=== PATIENT | female | born 1985 | race Caucasian/White ===

== ENCOUNTER 2022-11-17 05:32 | Inpatient (IN) ==
--- NOTE | 2022-11-10 13:53 | Communication Note ---
Received phone call from [facility]- patient scheduled for 11/17/22. Hx of thrombocytopenia. Platelets on 11/02/22 were 100. OB office inquiring if further instructions needed for DOS. Did discuss with Dr. Albrecht- recommend repeat CBC DOS to recheck platelets. As long as thrombocytopenia staying stable around 100- no issues proceeding with spinal anesthetic. Per review of records- patient had epidural placed in 05/04/20 for labor- epidural later dosed for . Epidural catheter was actually replaced prior to on 05/05/20 when platelet count was 87k. Plan at this time is to awaiting CBC results DOS. Anesthesia will leave to OB discretion if patient needs further preop treatment prior to procedure.
--- NOTE | 2022-11-16 08:49 | Anesthesiology Consultation ---
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 Repeat labs from 11/15/22 showed platelets of 78. OB is aware. No plan for pre treatment or platelet transfusion at this time. Plan is to repeat platelets morning of (tomorrow 11/17/22) and will make final decision with how to proceed at that time. Did inform OB that anesthesia ideally likes platelets 80 or greater for neuraxial anesthesia. Dr Stover is okay to proceed with thrombocytopenia and would be amendable to under GA if needed. Pt will be seeing OB this morning and plan will be discussed. Dr. Albrecht was also inf ormed - will make final anesthesia decisions DOS after platelet count confirmed. -Infectious Disease screening: Per PAT nursing assessment on11/15/22. No known infectious disease contacts in past 10 days or current infectious disease symptoms. No recent travel outside the country. History Surgery Operation Date: 11/17/22 07:30 Proposed Procedures p Section (Delivery of Baby Through Abdominal Incision) - Masha Stover MD s with Bilateral Tubal Ligation - Masha Stover MD Height/Weight Height: 5 ft 6 in Weight: 81.647 kg Allergies Allergy/AdvReac Type Severity Reaction Status Date / Time No Known Allergies Allergy Verified 11/17/22 05:54 Medications Home Medications Medication Instructions Recorded Confirmed Last Taken prenat.vits,owen,nmf-bhtk-fvztz 1 tab PO DAILY 04/11/19 11/17/22 11/16/22 16:00 levothyroxine 137 mcg tablet 137 mcg PO QAM 04/14/22 11/17/22 11/17/22 05:00 aspirin 81 mg tablet,delayed 81 mg PO DAILY 10/12/22 11/17/22 11/15/22 21:00 release (Adult Low Dose Aspirin) breast pump #1 ea 10/26/22 11/16/22 Unknown Active Medications Generic Name Dose Route Start Last Admin Trade Name Freq PRN Reason Stop Dose Admin Cefazolin Sodium 2,000 mg/ 15 mls @ 3.75 mls/min 11/17/22 06:00 11/17/22 07:22 Syringe IV 11/17/22 14:00 3.75 mls/min PREOP KIERSTEN Administration Protocol Past Medical History Medical History H/O Terrance thyroiditis History of pre-eclampsia Hypothyroidism Thrombocytopenia affecting Past Family History Family History Grandfather (Paternal) Diabetes Hypertension Grandmother (Paternal) Diabetes Hypertension Mother Thyroid disease Gestational diabetes Grandfather (Maternal) Hypertension Grandmother (Maternal) Hypertension Father Prostate cancer Past Surgical History Surgical History H/O section Social History Smoking Status: Never smoker Do You Dip or Chew Tobacco: No Hx Alcohol Use: No Hx Substance Use: No substance use type: does not use Physical Exam Vital Signs Last Vital Signs Temp 36.8 C 11/17/22 06:00 Pulse 85 11/17/22 07:13 Resp 18 11/17/22 06:00 BP 156/97 H 11/17/22 07:13 Testing Laboratory Results 11/17/22 05:45 11/17/22 06:54 Blood Type B Positive 11/17/22 05:45 Antibody Screen NEGATIVE 11/17/22 05:45 11/15/22= WBC: 9.60 H/H: 11.8/37.0 PLATELETS: 78 SODIUM: 138 POTASSIUM: 4.3 CHLORIDE: 104 CO2: 22 BUN: 14 CREATININE: 1.0 GLUCOSE: 75 TSH: 1.86 FREE T4: 1.3 UA: Trace protein, 26-50 urine bacteria
--- NOTE | 2022-11-16 10:07 | History & Physical Report ---
Date of Service November 16, 2022 Assessment & Plan (1) Previous delivery affecting , antepartum: (2) Thrombocytopenia affecting : Plan -reviewed platelets of 78 is still acceptable for CS, however possible that may not be a candidate for spinal anesthesia. Reviewed at this point, would not indicate platelet transfusion or pre-treatment given timing. Will need to see what platelets are in the AM to determine neuraxial plan. Reviewed if platelets are below 50 may need to transfuse or consider location of delivery and pt verbalized understanding -Discussed indications, risks, benefits, alternatives with risks including infection, bleeding, injury to adjacent structures (bowel, bladder, ureters, blood vessels, nerves, baby), possible need for blood transfusion and/or life saving hysterectomy, VTE. Reviewed risks for tubal including risk of regret, ectopic and alternatives and desires to proceed with tubal. Consent reviewed in detail w/ pt and signed after all questions answered to her satisfaction. History of Present Illness Chief Complaint: preop Primary Care Provider: Kiya Keating MD 36 yo at 38 6/7 wga presents for preop for planned repeat CS + BTL tomorrow at 39 wks. +FM; denies ctx, LOF, VB. NST reactive. Of note platelets have been slowly downtrending as of last few weeks. Had been following nephro and during labs had noted platelets of 100, confirmed 11/02. Yesterday had platelets 78. 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 SAB G2 2020 pLTCS G3 current regular cycles, denies h STIs Allergies Allergy/AdvReac Type Severity Reaction Status Date / Time No Known Allergies Allergy Verified 11/16/22 08:41 Home Medications Medication Instructions Recorded Confirmed Type prenat.vits,owen,lug-iwmy-qgsqq 1 tab PO DAILY 04/11/19 11/16/22 History levothyroxine 137 mcg tablet 137 mcg PO QAM 04/14/22 11/16/22 History aspirin 81 mg tablet,delayed 81 mg PO DAILY 10/12/22 11/16/22 History release (Adult Low Dose Aspirin) breast pump #1 ea 10/26/22 11/16/22 Rx Patient History Medical History H/O Terrance thyroiditis History of pre-eclampsia Hypothyroidism Thrombocytopenia affecting Surgical History H/O section Family History Grandfather (Paternal) Diabetes Hypertension Grandmother (Paternal) Diabetes Hypertension Mother Thyroid disease Gestational diabetes Grandfather (Maternal) Hypertension Grandmother (Maternal) Hypertension Father Prostate cancer Social History Smoking Status: Never smoker Second Hand Exposure: No; Do You Dip or Chew Tobacco: No; Hx Alcohol Use: No Hx Substance Use: No Preferred Language: Serbian Communication Ability: Effective Parts Finisher Required: No Beliefs That Will Affect Care: None marital status: marital status details: Pranay Martinez (37) [phone] Current Living Situation: Spouse Current Living Situation Comment: lives with spouse, child current occupational status: employed 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 [employer] Feels Safe at Home: Yes Assistive Devices: Glasses Physical Exam Respiratory: normal respiratory effort, lungs clear to auscultation Cardiovascular: RRR, no murmur, no edema Genitourinary: OB Exam Abdomen: + heart tones (NST reactive) Results & Data Laboratory Results OB Labs: Blood Type B Positive 04/28/22 Antibody Screen NEGATIVE 04/28/22 Hemoglobin 11.5 g/dl (12.0-16.0) L 11/02/22 Hematocrit 34.8 % (37.0-47.0) L 11/02/22 Mean Corpuscular Volume 86.4 fL (80.0-100.0) 11/02/22 Platelet Count 100 K/uL (130-400) L 11/02/22 Rubella IgG Antibody Immune (Immune) 04/28/22 Rapid Plasma Reagin Nonreactive (Nonreactive) 04/28/22 Hepatitis B Surface Antigen Neg (Neg) 09/25/19 Hepatitis B Surface Antigen. NON-REACTIVE (NON-REACTIVE) 04/28/22 Hepatitis C Antibody (EIA) NON-REACTIVE (NON-REACTIVE) 04/28/22 HIV (1&2) Ab and P24 Ag, 4th Gener Neg (Neg) 09/25/19 HIV (1&2) Ag and Ab Confirmation NON-REACTIVE (NON-REACTIVE) 04/28/22 Glucose 1 Hour 50 gm Load 141 mg/dl (70-130) H 06/09/22 OB Optional Labs: Chlamydia trachomatis RNA Not Detected (NotDetected) 04/28/22 Neisseria gonorrhoeae RNA Not Detected (NotDetected) 04/28/22 Thyroid Stimulating Hormone (TSH) 0.515 uIu/ml (0.300-4.500) 03/15/20 Labs Reviewed: (-) CF/SMA in prior , HK cfdna-low risk--mln GBS neg Diagnostic Findings R lat plac Coding Level of Care Code None Diagnoses Previous delivery affecting , antepartum O34.219 Thrombocytopenia affecting O99.119; D69.6
[2022-11-17] MEDS ORDERED: SODIUM CHLORIDE 0.9% 250 ML IV PRN (05:40)
[2022-11-17] MEDS ORDERED: CITRIC ACID/SODIUM CITRATE 15 ML UDC PO SCH (06:00)
[2022-11-17] MEDS ORDERED: ceFAZolin 2,000 MG in SYRINGE 0 ML IV SCH (06:00)
[2022-11-17] MEDS ORDERED: LACTATED RINGER'S 1,000 ML IV SCH (06:00)
[2022-11-17 06:35] LABS: Hematocrit (blood only) 33.6 % (37.0-47.0); Hemoglobin 11.3 g/dl (12.0-16.0); Mean Corpuscular Hemoglobin 28.3 pg (25.0-34.0); Mean Corpuscular Hgb Conc 33.6 g/dL (32.0-36.0); Mean Corpuscular Volume 84.2 fL (80.0-100.0); Platelet Count 85 K/uL (130-400); RDW Coefficient of Variation 11.9 % (11.5-14.5); RDW Standard Deviation 35.9 fL (36.4-46.3); Red Blood Count 3.99 M/uL (4.20-5.40); White Blood Count 12.65 K/ul (4.8-10.8)
[2022-11-17] MEDS ORDERED: NIFEdipine 10 MG CAP PO STA (06:38)
[2022-11-17 06:50] LABS: Basophils # (auto) 0.07 K/uL (0.00-0.20); Basophils % (auto) 0.6 %; Eosinophils # (auto) 0.07 K/uL (0.00-0.50); Eosinophils % (auto) 0.6 %; Immature Granulocytes # (auto) 0.08 K/uL (0.01-0.20); Immature Granulocytes % (auto) 0.6 %; Lymphocytes # (auto) 3.24 K/uL (1.20-3.40); Lymphocytes % (auto) 25.6 %; Monocytes # (auto) 0.99 K/uL (0.11-0.59); Monocytes % (auto) 7.8 %; Neutrophils % (auto) 64.8 %; Polychromasia 1+
[2022-11-17] MEDS ORDERED: MoRPHine SULFATE PF 1 MG/ML 10 ML AMP/VIAL ONE (07:05)
[2022-11-17] MEDS ORDERED: OXYTOCIN 10 UNITS/ML VIAL ONE (07:05)
[2022-11-17] MEDS ORDERED: fentaNYL citrate PF 100 MCG/2 ML VIAL ONE (07:05)
[2022-11-17] MEDS ORDERED: PHENYLEPHRINE 100MCG/ML 5ML SYR ONE (07:05)
[2022-11-17 07:28] LABS: Albumin Globulin Ratio 1.1 (0.9-2); Albumin Level 3.2 gm/dl (3.4-5.0); BUN Creatinine Ratio 19.4 (10-20); Bilirubin,Total 0.3 mg/dl (0.2-1.0); Calcium 8.4 mg/dl (8.6-10.3); Creatinine Clr Calc Pharmacy 92.9 ml/min; Est GFR (African American) 92.3 ml/min; Est GFR (Non-African American) 79.6 ml/min; Globulin 2.9 gm/dl (2.5-4.0); Potassium 4.3 mmol/L (3.5-5.1); Total Protein 6.1 gm/dl (6.0-8.3)
--- NOTE | 2022-11-17 07:31 | History & Physical Bridge Note ---
Date of Service November 17, 2022 History & Physical Bridge Note I have examined the patient, reviewed the History & Physical and in the interval since the performance of the History & Physical I have noted the following changes of clinical significance: no changes noted. Platelets 85, ok for spinal. Elevated bps and received nifedipine this AM, CMP pending. Will determine further management w/ BP monitoring
[2022-11-17] MEDS ORDERED: NO NARCOTICS OR SEDATIVES SCH (07:45)
[2022-11-17] MEDS ORDERED: PROMETHAZINE HCL 6.25 MG in SODIUM CHLORIDE 0.9% 50 ML IV PRN (07:45)
[2022-11-17] MEDS ORDERED: KETOROLAC 30 MG/ML VIAL IV PRN (07:45)
[2022-11-17] MEDS ORDERED: ONDANSETRON INJ 2 MG/ML 2 ML VIAL IV PRN (07:45)
[2022-11-17] MEDS ORDERED: MoRPHine SULFATE PF 1 MG/ML 10 ML AMP/VIAL INT SPINAL ONE (07:45)
[2022-11-17] MEDS ORDERED: NALBUPHINE HCL INJ 10 MG/ML AMP IV PRN (07:45)
[2022-11-17] MEDS ORDERED: HYDROmorphone INJ 0.5 MG/0.5 ML SYR IV PRN (07:45)
[2022-11-17] MEDS ORDERED: NALOXONE HCL 1 MG in SODIUM CHLORIDE 0.9% 1,000 ML IV PRN (07:45)
[2022-11-17] MEDS ORDERED: DC INTRASPINAL MORPHINE SCH (07:45)
[2022-11-17] MEDS ORDERED: LACTATED RINGER'S 500 ML IV PRN (07:45)
[2022-11-17] MEDS ORDERED: SODIUM CHLORIDE 0.9% 1,000 ML IV SCH (07:45)
[2022-11-17] MEDS ORDERED: NALOXONE HCL 0.4 MG/1 ML VIAL/CARP IV PRN (07:45)
[2022-11-17] MEDS ORDERED: NALOXONE HCL 0.08 MG in SYRINGE 1.8 ML IV PRN (07:45)
[2022-11-17] MEDS ORDERED: diphenhydrAMINE 50 MG/ML VIAL IV PRN (07:45)
[2022-11-17] MEDS ORDERED: ePHEDrine sulfate 50 MG/ML AMP IV PRN (07:45)
[2022-11-17] MEDS ORDERED: ONDANSETRON INJ 2 MG/ML 2 ML VIAL ONE (08:29)
[2022-11-17] MEDS ORDERED: OXYTOCIN 30 UNITS/500 ML BAG IV PRN (08:50)
[2022-11-17] MEDS ORDERED: DIPHTHERIA/TETANUS/PERTUSSIS Vaccine (Tdap, Age 7+yrs) 0.5mL SYR/VL IM ONE (08:50)
[2022-11-17] MEDS ORDERED: OXYTOCIN 30 UNITS in LACTATED RINGER'S 1,000 ML IV SCH (08:50)
[2022-11-17] MEDS ORDERED: SENNA 8.6 MG TAB PO PRN (08:50)
[2022-11-17] MEDS ORDERED: BENZOCAINE 20% SPRY 85 APPLN/85 GM CAN EXT PRN (08:50)
[2022-11-17] MEDS ORDERED: MAGNESIUM HYDROXIDE SUSP 30 ML UDC PO PRN (08:50)
[2022-11-17] MEDS ORDERED: HYDROCORTISONE ACETATE 25 MG SUPP PR PRN (08:50)
--- NOTE | 2022-11-17 08:57 | Operative Report ---
PG Post Operative Report Pre & Post Diagnosis Operation Date: 11/17/22 07:30 Pre-Op Diagnosis: Intrauterine at 39 weeks History of Section x1 desires repeat Desires permanent sterilization Thrombocytopenia Post-Op Diagnosis: Same I identified the patient and participated in the time-out.: Yes Procedure Operation Date: 11/17/22 07:30 Actual Procedures p Repeat Low Transverse Section, Bilateral Salpingectomy in labor and delivery for live male at 0800 - Masha Stover MD Surgeon Masha Stover MD Sound Equipment Mechanic MD Augustina Estimated Blood Loss 600 Findings Consistent with Post-Op Diagnosis Slight filmy bladder adhesions. Normal appearing uterus, bilateral fallopian tubes and ovaries. Viable male with APGARs of 8 and 9 Fluids 1400cc crystalloid, UOP 300cc by linda catheter Specimens Placenta, bilateral fallopian tubes Drains Linda draining clear urine Anesthesia Type Spinal Complications none Disposition Accompanied Patient To Recovery: Yes Disposition: L&D Indications 36 yo at 39 wga presented for planned repeat and tubal ligation. Thrombocytopenia had been noted in recent weeks and downtrended to 78 two days ago, repeat this AM was 85. On arrival, BPs were elevated so additional labs were ordered and on-call provider had administered nifedipine with appropriate improvement of BPs. Description of Procedure The patient was taken to the operating room after consents were ensured. The patient was properly identified. Spinal anesthesia was obtained without difficulty. The patient was placed in a dorsal supine position with left lateral tilt, then prepped and draped in normal sterile fashion. Surgical time out was performed. Antibiotics were given for prophylaxis. Anesthesia was tested to ensure adequate surgical levels. Pfannenstiel skin incision was performed and carried down to the underlying fascia with a knife. The fascia was then nicked in the midline and extended laterally with pickups and Jay scissors. Superior portion of the fascia was grasped with Kochers x2 and elevated off the underlying rectus muscles using blunt dissection. Inferior portion of the fascia was then grasped with Max clamps x2 and also elevated off the underlying muscles with blunt dissection. Midline was identified. The peritoneum was then entered and extended to provide adequate room for delivery of baby. A hand was inserted into the abdomen, uterus was noted to be clear of adhesions. Bladder blade was inserted, bladder flap was created in the usual fashion after taking down lower bladder adhesions. A low tr ansverse uterine incision was made in the uterus and extended bluntly in a superior to inferior fashion. Amniotomy was made with clear fluid at the time of rupture. head was grasped and elevated through the hysterotomy in an atraumatic fashion. The baby delivered in MONSE position, no nuchal cord. Remainder of the body delivered without incident. Nose and mouth were bulb suctioned on the surgical field. The cord was double clamped and cut, baby was handed off to awaiting pediatrics staff. Cord segment and blood were obtained. Placenta was then expressed from the uterus. The uterus was exteriorized. Several passes were made inside the uterus to remove the remaining membranes. Attention was then turned to the hysterotomy, which was then closed with a running locked suture of 0 Vicryl on a CTX needle. An imbricating layer was then performed using 0-Monocryl. There was noted to be good hemostasis. Attention was turned to the permanent sterilization portion of the procedure. Right fallopian tube was grasped and followed out to the fimbriated end. Pollock was placed on the avascular portion of the mesosalpinx. Responsys Cautery device was used to serially cauterize and divide the fallopian tube to the level of the cornua and handed off for pathology. Tubal site was hemostatic. The same procedure was performed on the contralateral side. Hysterotomy again was hemostatic. The posterior cul-de-sac was then inspected and cleaned of clot and debris. The hysterotomy was again inspected and noted to be hemostatic. Tubal sites hemostatic. The uterus was returned to the abdomen. The right and left pericolic gutters were cleaned of all clot and debris. The hysterotomy was again noted to be hemostatic. Tubal sites were hemostatic bilaterally. Space of Retzius was noted to be hemostatic. The fascia was then closed with a running suture of 0 Vicryl on a CT1 needle. Subcutaneous tissue was copiously irrigated and noted to be hemostatic. Subcutaneous tissue was re-approximated using 2-0 plain gut. The skin was then closed with a running suture of 3-0 Monocryl in a subcuticular fashion. At termination of the procedure, fundal pressure was applied and a moderate amount of lochia was expressed. Pressure dressing was applied to the patient. She tolerated the procedure well. All sponge, needle, instrument counts were correct x 2. I attest to the content of the Intraoperative Record and any orders documented therein. Any exceptions are noted below. OB Procedure Charges [id number] [id number] Add on Tubal for C/S
--- NOTE | 2022-11-17 10:19 | Anesthesiology Progress Note ---
Date of Service November 17, 2022 Anesthesia Post Procedure Vital Signs Vital Signs: Temp Pulse Resp BP Pulse Ox 11/17/22 10:00 16 11/17/22 09:50 16 11/17/22 09:40 16 11/17/22 09:30 16 11/17/22 09:20 16 11/17/22 09:10 16 11/17/22 09:00 36.6 C 16 11/17/22 10:16 60 99 11/17/22 10:11 50 L 98 11/17/22 10:09 51 L 138/87 11/17/22 10:06 51 L 99 11/17/22 10:01 57 L 100 11/17/22 10:00 57 L 92 11/17/22 09:59 51 L 139/88 11/17/22 09:56 52 L 98 11/17/22 09:51 56 L 99 11/17/22 09:49 55 L 122/64 11/17/22 09:46 56 L 98 11/17/22 09:41 57 L 100 11/17/22 09:39 63 126/77 11/17/22 09:36 58 L 99 11/17/22 09:33 71 92 11/17/22 09:31 58 L 98 11/17/22 09:29 59 L 131/78 11/17/22 09:26 57 L 99 11/17/22 09:21 59 L 97 11/17/22 09:19 63 151/84 H 11/17/22 09:16 72 100 11/17/22 09:11 57 L 99 11/17/22 09:09 70 123/91 11/17/22 09:06 62 100 11/17/22 09:01 72 99 11/17/22 08:56 64 97 11/17/22 08:51 70 100 11/17/22 08:46 71 132/87 99 11/17/22 07:13 85 156/97 H 11/17/22 06:59 103 H 154/105 H 11/17/22 06:39 71 159/104 H 11/17/22 06:32 73 161/103 H 11/17/22 06:31 73 180/102 H 11/17/22 06:09 65 156/97 H 11/17/22 06:00 36.8 C 67 18 141/99 H 11/17/22 05:56 36.8 C 67 18 141/99 H Transfer of Care Handoff Completed per policy Notes Mental Status: alert / awake / arousable and participated in evaluation Patient Amnestic to Procedure: No Nausea / Vomiting: adequately controlled Pain: adequately controlled Airway Patency, RR, SpO2: stable & adequate BP & HR: stable & adequate Hydration State: stable & adequate Neuraxial Anesthesia: was administered and sensory block is resolving Anesthetic Complications: no major complications apparent and Pt Satisfied with anesthetic care
[2022-11-17] MEDS: SIMETHICONE 80 MG CHEW PO SCH ×2 (15:52→17:37)
[2022-11-17] MEDS: LACTATED RINGER'S 1,000 ML IV SCH (19:28)
[2022-11-17] MEDS: DOCUSATE SODIUM 100 MG CAP PO SCH (21:36)
[2022-11-18] MEDS: SIMETHICONE 80 MG CHEW PO SCH ×5 (00:09→20:21)
[2022-11-18] MEDS ORDERED: KETOROLAC 30 MG/ML VIAL IV PRN (01:45)
[2022-11-18] MEDS ORDERED: diphenhydrAMINE 50 MG/ML VIAL IV PRN (01:45)
[2022-11-18] MEDS ORDERED: MEPERIDINE HCL 50 MG/ML CARP IV PRN (01:45)
[2022-11-18] MEDS ORDERED: ONDANSETRON INJ 2 MG/ML 2 ML VIAL IV PRN (01:45)
[2022-11-18] MEDS ORDERED: diphenhydrAMINE Capsule 25 MG CAP PO PRN (01:45)
[2022-11-18] MEDS ORDERED: PROMETHAZINE HCL 25 MG in SODIUM CHLORIDE 0.9% 50 ML IV PRN (01:45)
[2022-11-18] MEDS ORDERED: oxyCODONE/ACETAMINOPHEN 5mg/325mg TAB PO PRN (01:45)
[2022-11-18] MEDS: IBUPROFEN 600 MG TAB PO PRN ×4 (03:20→20:20)
[2022-11-18] MEDS: LEVOTHYROXINE SODIUM 137 MCG TABLET PO SCH ×2 (06:46→07:34)
[2022-11-18] MEDS: LACTATED RINGER'S 1,000 ML IV SCH ×4 (07:34→17:20)
--- NOTE | 2022-11-18 07:56 | Obstetrical Progress Note ---
Date of Service November 18, 2022 Assessment & Plan (1) Encounter for care and examination after delivery: Day 1 status post section. Doing well. Patient had labile blood pressures since delivery. Blood pressures appear to be improving and are mild range to normal at present. Denying any preeclampsia symptoms. (2) Thrombocytopenia affecting : Subjective Ambulation: ambulating normally Voiding: no voiding problems Passing Gas:: Yes Diet Tolerance:: regular diet Lochia:: Moderate Feeding Type:: breast feeding Physical Exam Constitutional WD/WN, vitals as above Respiratory normal respiratory effort; no respiratory distress and no labored breathing Cardiovascular Extremities: no calf tenderness Gastrointestinal (Abdomen) Inspection/Auscultation: abdomen normal to inspection; abdomen not distended Percussion/Palpation: abdomen soft; abdomen nontender, no guarding and abdomen not rigid dressing clean dry and intact Genitourinary OB Exam Abdomen: + fundal height Fundus: + firm and + relation to umbilicus (Below); not tender or not boggy Results & Data Vital Signs (Past 12 Hours) Vital Signs Temp Pulse Pulse Resp BP BP Pulse Ox 11/18/22 03:20 36.9 C 69 18 136/92 99 11/18/22 01:22 18 96 11/18/22 00:22 18 97 11/17/22 23:55 18 97 11/17/22 23:50 36.8 C 73 18 143/90 H 97 11/17/22 20:45 140/82 11/17/22 22:07 16 98 11/17/22 21:00 18 98 11/17/22 20:00 18 98 O2 Del Method 11/18/22 03:20 Room Air 11/18/22 01:22 11/18/22 00:22 11/17/22 23:55 11/17/22 23:50 Room Air 11/17/22 20:45 11/17/22 22:07 11/17/22 21:00 11/17/22 20:00
[2022-11-18] MEDS ORDERED: ACETAMINOPHEN 325 MG TAB ONE (08:21)
[2022-11-18] MEDS: PRENATAL VITAMIN 1 TAB PO SCH (08:22)
[2022-11-18] MEDS: FERROUS SULFATE 325 MG TAB PO SCH (08:22)
[2022-11-18] MEDS: DOCUSATE SODIUM 100 MG CAP PO SCH ×2 (08:22→20:20)
[2022-11-18 09:02] LABS: Basophils # (auto) 0.06 K/uL (0.00-0.20); Basophils % (auto) 0.5 %; Eosinophils # (auto) 0.09 K/uL (0.00-0.50); Eosinophils % (auto) 0.7 %; Immature Granulocytes # (auto) 0.09 K/uL (0.01-0.20); Immature Granulocytes % (auto) 0.7 %; Lymphocytes # (auto) 1.78 K/uL (1.20-3.40); Lymphocytes % (auto) 13.9 %; Mean Corpuscular Hemoglobin 27.7 pg (25.0-34.0); Mean Corpuscular Hgb Conc 32.3 g/dL (32.0-36.0); Mean Corpuscular Volume 85.9 fL (80.0-100.0); Monocytes # (auto) 0.74 K/uL (0.11-0.59); Monocytes % (auto) 5.8 %; Neutrophils # (auto) 10.01 K/uL (1.40-6.50); Neutrophils % (auto) 78.4 %; Platelet Count 69 K/uL (130-400); RDW Coefficient of Variation 11.8 % (11.5-14.5); Red Blood Count 3.61 M/uL (4.20-5.40); White Blood Count 12.77 K/ul (4.8-10.8)
[2022-11-18] MEDS: ACETAMINOPHEN 325 MG TAB PO PRN ×2 (16:36→20:21)
[2022-11-18] MEDS ORDERED: bisacodyL 5 MG TABEC PO SCH (20:00)
[2022-11-19] MEDS: IBUPROFEN 600 MG TAB PO PRN ×2 (07:50→19:23)
[2022-11-19] MEDS: SIMETHICONE 80 MG CHEW PO SCH ×4 (07:50→20:22)
[2022-11-19] MEDS: PRENATAL VITAMIN 1 TAB PO SCH (07:50)
[2022-11-19] MEDS: DOCUSATE SODIUM 100 MG CAP PO SCH ×2 (07:50→20:22)
[2022-11-19] MEDS: FERROUS SULFATE 325 MG TAB PO SCH (07:50)
[2022-11-19] MEDS: LEVOTHYROXINE SODIUM 137 MCG TABLET PO SCH (07:51)
[2022-11-19 07:52] LABS: Hematocrit (blood only) 30.7 % (37.0-47.0); Hemoglobin 10.3 g/dl (12.0-16.0); Mean Corpuscular Hemoglobin 28.3 pg (25.0-34.0); Mean Corpuscular Hgb Conc 33.6 g/dL (32.0-36.0); Mean Corpuscular Volume 84.3 fL (80.0-100.0); Mean Platelet Volume 13.3 fL (9.4-12.4); Platelet Count 83 K/uL (130-400); RDW Coefficient of Variation 11.9 % (11.5-14.5); RDW Standard Deviation 36.2 fL (36.4-46.3); Red Blood Count 3.64 M/uL (4.20-5.40); White Blood Count 11.78 K/ul (4.8-10.8)
--- NOTE | 2022-11-19 08:02 | Obstetrical Progress Note ---
Date of Service November 19, 2022 Assessment & Plan (1) Encounter for care and examination after delivery: 36 yo POD 2 from rltcs/btl, doing well -Meeting all pp milestones -BPs labile, but seem to be settling normal-mild range. Few 150s, asymptomatic. Will see how bps do today to determine if meds needed, may stay today to see what bps do as well -B+/rubella immune/ -f/u 6 weeks for appt Subjective Ambulation: ambulating normally Voiding: no voiding problems Passing Gas:: Yes Diet Tolerance:: regular diet Lochia:: Small Feeding Type:: breast feeding Pain well managed with medication Review of Systems Denies fevers, chills, n/v, REZA, CP, SOB Physical Exam Constitutional WD/WN, vitals as above no acute distress Respiratory normal respiratory effort, lungs clear to auscultation Cardiovascular RRR, no murmur, no edema Gastrointestinal (Abdomen) Percussion/Palpation: abdomen soft; abdomen nontender fundus firm at umbilicus and NT, incision c/d/i Musculoskeletal BLE symmetric, nonerythematous, nontender Results & Data Vital Signs (Past 12 Hours) Vital Signs Temp Pulse Resp BP O2 Del Method 11/19/22 00:45 98.2 F 62 16 144/88 H Room Air
[2022-11-19] MEDS ORDERED: bisacodyL 10 MG SUPP PR PRN (08:29)
[2022-11-19] MEDS ORDERED: LABETALOL HCL 200 MG TAB PO ONE (12:11)
[2022-11-19 12:46] LABS: Albumin Globulin Ratio 1.1 (0.9-2); Albumin Level 2.9 gm/dl (3.4-5.0); BUN Creatinine Ratio 15.4 (10-20); Bilirubin,Total 0.2 mg/dl (0.2-1.0); Calcium 8.1 mg/dl (8.6-10.3); Creatinine Clr Calc Pharmacy 110.8 ml/min; Est GFR (African American) 114.2 ml/min; Est GFR (Non-African American) 98.5 ml/min; Globulin 2.6 gm/dl (2.5-4.0); Potassium 3.7 mmol/L (3.5-5.1); Total Protein 5.5 gm/dl (6.0-8.3)
[2022-11-19] MEDS: LABETALOL HCL 200 MG TAB PO SCH (20:22)
--- NOTE | 2022-11-19 21:22 | Obstetrical Progress Note ---
Date of Service <Aleksandr Walls MD - Last Filed: 11/20/22 07:31> November 19, 2022 Assessment & Plan <Aleksandr Walls MD - Last Filed: 11/20/22 07:31> (1) delivery delivered: (2) Thrombocytopenia affecting : Plan 36 yo , day 3, status post C-sec of boy on 11/17/22 Thrombocytopenia, platelets 83,000 (11/19) - Pt doing well clinically. Feels well today. Eating well, voiding well, ambulating well. Pain well controlled with PRN pain meds. - Routine care -- OOB, ambulation, diet progression as tolerated Vital Signs reviewed and WNL. (Tmax at 37.1 C) except as noted: BP as high as 158/101, 156/95 Hemoglobin Reviewed. 10.0 (11/18/22) 10.3 (11/19/22), ____ Blood Type: B+, GBS-, Rubella Immune. Encourage ambulation, monitor and control pain with Motrin PRN, resume regular diet, monitor lochia. Breast feeding encouraged. After discharge will have 6 week follow-up with ___. Pt counselled on discharge instructions (only if they are going home that day). <Masha Stover MD - Last Filed: 11/20/22 08:29> (1) delivery delivered: (2) Thrombocytopenia affecting : Subjective <Aleksandr Walls MD - Last Filed: 11/20/22 07:31> Ambulation: ambulating normally Voiding: no voiding problems Passing Gas:: Yes Diet Tolerance:: regular diet Lochia:: Small Feeding Type:: breast feeding Current Pain Level(1-10): 1 (incisional site pain) Constitutional: no fever or no chills Eyes: no diplopia or no worsening vision Respiratory: no cough or no dyspnea Cardiovascular: no chest pain or no palpitations Gastrointestinal: no nausea, no vomiting, no constipation (patient has had BMs) or no diarrhea/loose stools Physical Exam <Aleksandr Walls MD - Last Filed: 11/20/22 07:31> Constitutional WD/WN, vitals as above Respiratory normal respiratory effort, lungs clear to auscultation Cardiovascular RRR, no murmur, no edema Musculoskeletal Extremities: extremities normal to inspection (no calf pain or tenderness) Results & Data <Aleksandr Walls MD - Last Filed: 11/20/22 07:31> Vital Signs (Past 12 Hours) Vital Signs Temp Pulse Resp BP BP O2 Del Method 11/19/22 15:41 36.9 C 80 16 154/95 H Room Air 11/19/22 11:45 158/99 H 158/98 H 11/19/22 11:25 158/101 H 150/100 H 11/19/22 09:45 149/99 H <Masha Stover MD - Last Filed: 11/20/22 08:29> Co-Signing Physician Notes Resident Physician Supervision Note: I interviewed and examined the patient. Discussed with Dr. Walls and agree with findings and plan as documented in the note. Any exceptions or clarifications are listed here: POD3 s/p RLTCS/BTL, feeling well. Started on labetalol 200mg po q12 after normal repeat CMP yesterday. Denies s/s PET. Mild range bps, the 150s overnight was during cluster feeding and pt reports feeling anxious so will see how BP is this AM. If ok, can dc home and will need bp check later this week, but aware may need more bp med titration. Documented By: Masha Stover MD
[2022-11-20] MEDS: LEVOTHYROXINE SODIUM 137 MCG TABLET PO SCH (06:26)
[2022-11-20] MEDS: SIMETHICONE 80 MG CHEW PO SCH ×2 (07:36→13:21)
[2022-11-20] MEDS: FERROUS SULFATE 325 MG TAB PO SCH (07:36)
[2022-11-20] MEDS: PRENATAL VITAMIN 1 TAB PO SCH (07:36)
[2022-11-20] MEDS: DOCUSATE SODIUM 100 MG CAP PO SCH (07:36)
[2022-11-20] MEDS: IBUPROFEN 600 MG TAB PO PRN (07:49)
[2022-11-20] MEDS: LABETALOL HCL 200 MG TAB PO SCH (08:26)
--- NOTE | 2022-11-21 16:38 | Discharge Summary ---
Date of Service November 21, 2022 Admission HPI Per Admitting Provider 36 yo at 38 6/7 wga presents for preop for planned repeat CS + BTL tomorrow at 39 wks. +FM; denies ctx, LOF, VB. NST reactive. Of note platelets have been slowly downtrending as of last few weeks. Had been following nephro and during labs had noted platelets of 100, confirmed 11/02. Yesterday had platelets 78. 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 G2 2020 pLTCS G3 current regular cycles, denies h STIs Admission Exam (Per Admitting) Constitutional WD/WN, vitals as above no acute distress Respiratory normal respiratory effort, lungs clear to auscultation Cardiovascular RRR, no murmur, no edema Gastrointestinal (Abdomen) Percussion/Palpation: abdomen soft; abdomen nontender Genitourinary OB Exam Abdomen: + heart tones (NST reactive) Discharge Data Consultations 11/17/22 05:37 Consult Anesthesiology Stat Procedures Performed Operation Date: 11/17/22 07:30 Actual Procedures p Section in labor and delivery for live male at 0800 - Masha Stover MD Hospital Course (1) delivery delivered: (2) Hypertension affecting : Plan On day of CS, platelets were 85 so was able to undergo procedure w/ spinal. See operative report for details. Post-operatively, BPs remained labile but not persistently severe. Repeat labs were obtained and wnl. Labetalol 200mg pod bid was started on POD2 and BPs settled into 140s. She was discharged home on POD3 w/ plan for BP check later this week. Coding Level of Care Code None Diagnoses delivery delivered O82 Hypertension affecting O16.9
== END 2022-11-20 14:45 | disposition home or self-care (01) | DRG 784 ==
LOC: 4S1 05:32 → EDSTATUS 09:05 → 4E2 11:50